=== PATIENT | male | born 1970 | race Caucasian/White ===

== ENCOUNTER 2025-05-02 09:14 | Outpatient (CLI) | payer OTHER, SELFPAY ==
--- OUTSIDE RECORDS SUMMARY | 2025-05-02 09:26 | XMS_ITS | Clinical Summary ---
Author Organization [facility] Address [address] [place] [address] Care Team Providers Care Inside Parts Sales Name Role Phone Elena Roca MD Primary Care Provider Source Comments [facility],non-owned Affiliates and Associated Physician Practices is amultiple site organization consisting of ambulatory clinics and hospital sitesin [place], [place], [place] and [place]. This disclosure is being madepursuant to the Care Everywhere program and may not contain all information available regarding this patient. Last updated 18.[facility] Allergies Active Allergy Reactions Criticality Noted Date Comments Glipizide DATABASE MODELER Dysfunction 01/14/2024 Medications * Be aware that medications may not be up to date on this document. Alwaysverify current medications with the patient. Blood Glucose Monitoring Suppl (GlucoCom Monitor) w/Device KITIndications :E 11.9 Use 1 device as directed Reasons: E 11.9 1 kit 4 Active blood glucose test stripIndicatio ns:E 11.9 Use 1 (one) strip once daily Reasons: E 11.9 100 strip 3 4 Active metFORMIN ER 24hr (Glucophage XR) 500 MG tablet Take 3 (three) tablets by mouth daily with dinner 270 tablet 3 4 Active empagliflozin (Jardiance) 10 MG tablet Take 1 (one) tablet by mouth once daily 90 tablet 1 5 Active tiZANidine (Zanaflex) 4 MG tablet Take 1 (one) tablet by mouth every 8 hours as needed for Muscle Spasms 60 tablet 5 Active allopurinol (Zyloprim) 300 MG tablet Take 1 tablet by mouth once daily 30 tablet 5 Active levothyroxine (Synthroid) 150 MCG tablet Take 1 tablet by mouth once daily 30 tablet 5 Active meloxicam (Mobic) 15 MG tablet TAKE 1 TABLET BY MOUTH ONCE DAILY NEEDED 30 tablet 5 Active atorvastatin (Lipitor) 20 MG tablet Take 1 tablet by mouth once daily 90 tablet 5 Active atorvastatin (Lipitor) 20 MG tablet Take 1 (one) tablet by mouth once daily 90 tablet 1 4 025 Discontinued Active Problems Problem Noted Date Diagnosed Date Routine general medical exam ination at a health care facility 01/14/2024 Gout of right foot 01/14/2024 Acquired hypothyroidism 01/14/2024 Type 2 diabetes mellitus wit hout complication, without long-term current use of insulin 01/14/2024 Positive hepatitis C antibody test 01/14/2024 Transaminitis 01/14/2024 Class 1 obesity due to exces s calories with serious comorbidity and body mass index (BMI) of 33.0 to 33.9 in adult 01/14/2024 Encounters Date Type Department Care Team Description 04/22/2025 Refill [facility] [address] [place] [id number] Elena Roca MD Refill Request 03/12/2025 Refill [facility] [address] [place] [address] Elena Roca MD Refill Request 02/06/2025 Refill [facility] [address] [place] [address] Elena Roca MD Refill Request from Last 3 Months Immunizations Immunization Administration Dates Next Due Covid Moderna primary monovalent 12+ yr 0.5mL ,11/27/2020 Family History Medical History Relation Name Comments None Known Brother None Known Mother None Known Sister Relation Name Status Comments Brother Alive 2 brother's Mother Alive Sister Alive Social History Tobacco Use Types Packs/Day Years Used Date Smoking Tobacco: Never Passive Smoke Exposure: Never Smokeless Tobacco: Never Tobacco Cessation:Counseling Given: No Alcohol Use Standard Drinks/Week Comments Never 0 (1 standard drink = 0.6 oz pur e alcohol) PHQ-2 Answer Date Recorded Patient Health Questionnaire-2 Score 0 12/22/2024 Sex and Gender Information Value Date Recorded Sex Assigned at Not on file 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 Gender Identity Not on file Sexual Orientation Not on file 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 file Not on file Not on f ile Last Filed Vital Signs Vital Sign Reading Time Taken Comments Blood Pressure 106/70 12/22/2024 2:33 PM CDT Pulse 89 12/22/2024 2:33 PM CDT Temperature 36.8 C (98.3 F) 12/22/2024 2:33 PM CDT Respiratory Rate - - Oxygen Saturation 98% 12/22/2024 2:33 PM CDT Inhaled Oxygen Concentration - - Weight 103.3 kg (227 lb 12.8 oz) 12/22/2024 2:33 PM CDT Height 188 cm (6' 2) 12/22/2024 2:33 PM CDT Body Mass Index 29.25 12/22/2024 2:33 PM CDT Plan of Treatment Health Maintenance Due Date Last Done Comments COLON MONITORING 1970 COLONOSCOPY - COLON CA SCREENING 1970 CT COLONOGRAPHY - COLON CA SCREENING 1970 FIT - COLON CA SCREENING 1970 FLEX SIG - COLON CA SCREENING 1970 DTAP/TDAP/TD VACCINES (1 - Tdap) 1989 HEPATITIS B VACCINE (1 of 3 - 19+ 3-dose series) 1989 PNEUMOCOCCAL VACCINE 50+ (1 of 2 - PCV) 1989 ZOSTER VACCINE (1 of 2) 2020 DIABETES RETINOPATHY SCREENING 01/14/2024 DIABETES - URINE PROTEIN SCREENING 09/22/2024 01/26/2024 DIABETES-FOOT EXAM WITH MONOFILAMENT 01/13/2025 01/14/2024 DIABETES-SERUM CREATININE 01/25/2025 01/26/2024, 09/2022 DIABETES-HGB A1C 02/01/2025 11/04/2024, , 04/19/2024, Additional history exists INFLUENZA VACCINE (#1) 2025 COVID-19 VACCINE ( season) 2025 08/29/2021, 12/25/2020, 11/27/2020 Postponed from 05/23/2024 (Patient Directed) COLOGUARD (AGES 45-75) - COLON CA SCREENING 01/17/2027 01/18/2024, 01/18/2024 Colorectal Cancer Screening 01/17/2027 HEPATITIS C SCREENING Completed 01/26/2024, 023 HIV SCREENING Completed 01/26/2024 DEPRESSION SCREENING Completed 11/04/2024, 01/14/20 24 HIB VACCINE Aged Out No longer eligi ble based on patient's age to complete this topic HPV VACCINE Aged Out No longer eligi ble based on patient's age to complete this topic MENINGOCOCCAL (Group B) VACCINE SHARED DECISION-MAKING Aged Out No longer eligible based on patient's age to complete this topic MENINGOCOCCAL GROUPS A/C/Y/W VACCINE Aged Out No longer eligible based on patient's age to complete this topic Procedures Procedure Name Priority Date/Time Associated Diagnosis Comments HEMOGLOBIN A1C - POINT OF CARE (AMB) Routine 11/04/2024 Type 2 diabetes mellitus without complication, without long-term current use of insulin HIV-1 HIV-2 ANTIBODY + HIV P24 AG PANEL Routine 01/26/2024 7:41 AM CDT Routine general medical examination at a [facility] care facility MICROALB/CREAT RATIO URINE RANDOM PANEL Routine 01/26/2024 7:38 AM CDT Type 2 diabetes mellitus without complication, without long-term current use of insulin COMPREHENSIVE METABOLIC PANEL Routine 01/26/2024 7:38 AM CDT Type 2 diabetes mellitus without complication, without long-term current use of insulin HEPATITIS C ANTIBODY W RFLX PCR Routine 01/26/2024 7:38 AM CDT Positive hepatitis C antibody test Transaminitis COLOGUARD TEST Routine 01/18/2024 4:00 AM CDT Screen for colon cancer from Last 3 Months or Most Recently Relevant to Health Maintenance Results * (ABNORMAL) HEMOGLOBIN A1C - POINT OF CARE (HgbA1C) (11/04/2024) [facility] Hemoglobin A1c POCT 8.7(H) % Expiration Date 06/29/26 Lot # [id number] QC Verified Yes Yes Blood BLOOD SPECIMEN / Unknown 11/04/2024 Elena Roca MD LAB - POINT OF CARE ORD ERABLES Final Result * HIV-1 HIV-2 ANTIBODY + HIV P24 AG PANEL (01/26/2024 7:41 AM CDT) [facility] HIV Screen 4th Generation w Reflex Non Reactive Non Reactive [facility] INSURANCE BILL Comment: HIV Negative HIV-1/HIV-2 antibodies and HIV-1 p24 antigen were NOT detected. There is no laboratory evidence of HIV infection. FASTING Blood BLOOD SPECIMEN / Unknown 01/26/2024 7:41 AM CDT 01/26/2024 Narrative Resulting Agency Comment Lab Testing performed at: [facility] [id number] Elena Roca MD LAB - CHEMISTRY ORDERAB LES Final Result Performing Organization Address City/[facility]/ZIP Co de Phone Number [facility] INSURANCE BILL [address] [place] [address] * (ABNORMAL) HEPATITIS C ANTIBODY W RFLX PCR (01/26/2024 7:38 AM CDT) [facility] Hepatitis C Antibody Reactive( A) Non Reactive [facility] ACCOUNT BILL Comment:FASTING Blood BLOOD SPECIMEN / Unknown 01/26/2024 7:38 AM CDT 01/26/2024 Narrative Resulting Agency Comment [facility]: [facility] [address] [facility] [id number] Elena Roca MD LAB - CHEMISTRY ORDERAB LES Final Result [facility] ACCOUNT BILL [address] [place] [address] * MICROALB/CREAT RATIO URINE RANDOM PANEL (01/26/2024 7:38 AM CDT) Creatinine Urine NOT AVAILABLE mg/dL [facility] ACCOUNT BILL Comment: Test not performed. Patient was unable to provide a self-collected specimen for the requested testing. The following test(s) were not performed: Result cannot be obtained for this observation. Microalbumin Urine NOT AVAILABLE [facility] ACCOUNT BILL Comment: Test not performed Result cannot be obtained for this observation. Microalbumin/Cre atinine Ratio NOT AVAILABLE [facility] ACCOUNT BILL Comment: FASTING Result cannot be obtained for this observation. Urine URINE SPECIMEN OBTAINED BY CLEAN CATCH PROCEDURE / Unknown 01/26/2024 7:38 AM CDT 01/26/2024 Narrative Resulting Agency Comment Lab Testing performed at: [facility] [address] [facility] [id number] Elena Roca MD LAB - URINE CHEMISTRY O RDERABLES Final Result [facility] ACCOUNT BILL [address] [place] [address] * (ABNORMAL) COMPREHENSIVE METABOLIC PANEL (01/26/2024 7:38 AM CDT) Glucose 141(H) 70 - 99 mg/dL [facility] ACCOUNT BILL BUN 20 6 - 24 mg/dL [facility] ACCOUNT BILL Creatinine 1.21 0.76 - 1.27 mg/dL [facility] ACCOUNT BILL eGFR by CKD-EPI 72 >59 mL/min/1.7 3 [facility] ACCOUNT BILL BUN/Creatinine Ratio 17 9 - 20 [facility] ACCOUNT BILL Sodium 138 134 - 144 mmol/L [facility] ACCOUNT BILL Potassium 5.2 3.5 - 5.2 mmol/L [facility] ACCOUNT BILL Chloride 101 96 - 106 mmol/L [facility] ACCOUNT BILL CO2 21 20 - 29 mmol/L [facility] ACCOUNT BILL Calcium 9.4 8.7 - 10.2 mg/dL [facility] ACCOUNT BILL Protein Total 7.3 6.0 - 8.5 g/dL [facility] ACCOUNT BILL Albumin 4.5 3.8 - 4.9 g/dL [facility] ACCOUNT BILL Globulin Total 2.8 1.5 - 4.5 g/dL [facility] ACCOUNT BILL Albumin/Globulin Ratio 1.6 1.2 - 2.2 [facility] ACCOUNT BILL Bilirubin Total 0.3 0.0 - 1.2 mg/dL [facility] ACCOUNT BILL Alkaline Phosphatase 70 44 - 121 IU/L [facility] ACCOUNT BILL AST 26 0 - 40 IU/L [facility] ACCOUNT BILL ALT 35 0 - 44 IU/L [facility] ACCOUNT BILL Comment:FASTING Blood BLOOD SPECIMEN / Unknown 01/26/2024 7:38 AM CDT 01/26/2024 Narrative Resulting Agency Comment Lab Testing performed at: [facility] [address] [facility] [id number] Elena Roca MD LAB - CHEMISTRY ORDERAB LES Final Result [facility] ACCOUNT BILL [address] [place] [address] * COLOGUARD TEST (01/18/2024 4:00 AM CDT) Cologuard Negative Negative [facility] Comment: NEGATIVE TEST RESULT. A negative Cologuard result indicates a low likelihood that a colorectal cancer (CRC) or advanced adenoma (adenomatous polyps with more advanced pre-malignant features) is present. The chance that a person with a negative Cologuard test has a colorectal cancer is less than 1 in 1500 (negative predictive value >99.9%) or has an advanced adenoma is less than 5.3% (negative predictive value 94.7%). These data are based on a prospective cross-sectional study of 10,000 individuals at average risk for colorectal cancer who were screened with both Cologuard and colonoscopy. (Cindy Vega al, N Engl J Med 2014;370(14):1606-5400) The normal value (reference range) for this assay is negative. COLOGUARD RE-SCREENING RECOMMENDATION: Periodic colorectal cancer screening is an important part of preventive healthcare for asymptomatic individuals at average risk for colorectal cancer. Following a negative Cologuard result, the [place] Cancer Society and U.S. Multi-Society Task Force screening guidelines recommend a Cologuard re-screening interval of 3 years. References: [place] [employer] Guideline for Colorectal Cancer Screening: https://www.cancer.org/cancer/oezzm-zsfyng-mpcgpe/cvgvxtcgu-ubnjiplow-hqtmtwu/ acs-recommendations.html.; Misael SOSA, Isacc ALVAREZ, Dulce JosephK, Colorectal Cancer Screening: Recommendations for Physicians and Patients from the U.S. Multi-Society Task Force on Colorectal Cancer Screening , Am J Gastroenterology 2017; 112:3642-5387. TEST DESCRIPTION: Composite algorithmic analysis of stool DNA-biomarkers with hemoglobin immunoassay. Quantitative values of individual biomarkers are not reportable and are not associated with individual biomarker result reference ranges. Cologuard is intended for colorectal cancer screening of adults of either sex, 45 years or older, who are at average-risk for colorectal cancer (CRC). Cologuard has been approved for use by the U.S. FDA. The performance of Cologuard was established in a cross sectional study of average-risk adults aged 50-84. Cologuard performance in patients ages 45 to 49 years was estimated by sub-group analysis of near-age groups. Colonoscopies performed for a positive result may find as the most clinically significant lesion: colorectal cancer [4.0%', advanced adenoma (including sessile serrated polyps greater than or equal to 1cm diameter) [20%' or non- advanced adenoma [31%'; or no colorectal neoplasia [45%'. These estimates are derived from a prospective cross-sectional screening study of 10,000 individuals at average risk for colorectal cancer who were screened with both Cologuard and colonoscopy. (Cindy Vega al, N Engl J Med 2014;370(14):0217-1424.) Cologuard may produce a false negative or false positive result (no colorectal cancer or precancerous polyp present at colonoscopy follow up). A negative Cologuard test result does not guarantee the absence of CRC or advanced adenoma (pre-cancer). The current Cologuard screening interval is every 3 years. ([place] Cancer Society and U.S. Multi-Society Task Force). Cologuard performance data in a 10,000 patient pivotal study using colonoscopy as the reference method can be accessed at the following location: www.[employer]/results. Additional description of the Cologuard test process, warnings and precautions can be found at www.cologuard.com. Stool STOOL SPECIMEN / Unknown 01/18/2024 4:00 AM CDT 01/21/2024 8:19 AM CDT us Elena oRca MD LAB - CHEMISTRY ORDERAB LES Final Result [facility] [address] [address] [facility] [address] [place] [address] from Last 3 Months or Most Recently Relevant to Health Maintenance Insurance [facility] Care Teams Inside Parts Sales Relationship Specialty Start Date End Date Elena Roca MD [address] [place] [id number] PCP - General Internal Medicine 12/10/23
--- OUTSIDE RECORDS SUMMARY | 2025-05-02 09:26 | XMS_ITS | Clinical Summary ---
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 90 Tablet 4 Active atorvastatin (LIPITOR) 20 MG TabletIndications:O ther hyperlipidemia Take 1 Tablet by mouth daily. 90 Tablet 4 Active levothyroxine (SYNTHROID) 150 MCG TabletIndications:O ther specified hypothyroidism Take 1 Tablet by mouth daily. 90 Tablet 4 Active Active Problems No known active problems Immunizations Immunization Administration Dates Next Due Covid-19, Mrna, Lnp-s, PF, 5 0 mcg/0.25 mL dose (Moderna) 08/29/2021 Family History Medical History Relation Name Comments No Known Problems Father No Known Problems Mother Relation Name Status Comments Father Alive Mother Alive Social History Tobacco Use Types Packs/Day Years Used Date Smoking Tobacco: Former Cigarettes Q uit: 06/11/2015 Passive Smoke Exposure: Past Smokeless Tobacco: Never Alcohol Use Standard Drinks/Week Comments Not Currently 0 (1 standard drink = 0.6 oz pure alcohol) moderately, last drank 09/15/2014 PHQ-2 Answer Date Recorded Total Score - Questions 1-9 0 11/21 Sexually Active Control Partners Comments Yes Female Sex and Gender Information Value Date Recorded Sex Assigned at Not on file 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 Gender Identity Not on file Sexual Orientation Not on file Last Filed Vital Signs Vital Sign Reading Time Taken Comments Blood Pressure 120/80 12/11/2023 10:36 AM CDT Pulse 84 12/11/2023 10:36 AM CDT Temperature 36.4 C (97.6 F) 12/11/2023 10:36 AM CDT Respiratory Rate 20 12/11/2023 10:3 6 AM CDT Oxygen Saturation 95% 12/11/2023 10: 36 AM CDT Inhaled Oxygen Concentration - - Weight 115.8 kg (255 lb 3.2 oz) 024 10:36 AM CDT Height 188 cm (6' 2) 12/11/2023 10:36 AM CDT Body Mass Index 32.77 12/11/2023 10:36 AM CDT Plan of Treatment Health Maintenance Due Date Last Done Comments TdaP Immunization 1970 Hepatitis B Immunization (1 of 3 - 19+ 3-dose series) 1989 Cologuard 2015 Colonoscopy 2015 Colorectal Cancer Screening 2015 Immunochemical Fecal Occult Blood 2015 Pneumococcal Immunization (5 0+ years) (1 of 1 - PCV) 2020 Zoster Immunization (1 of 2) 2020 SARS-COV-2 Immunization (4 - season) 2024 08/29/2021, 12/25/2020, 11/27/2020 Influenza Immunization (#1) 2025 Respiratory Syncytial Virus (RSV) Immunization (Adult) (1 - 1-dose 75+ series) 2045 Hepatitis C Virus (HCV) Screening Completed 01/26/2024, 08/13/2023, 07/23/2023 Human Papillomavirus (HPV) Immunization Aged Out No longer eligible b ased on patient's age to complete this topic Meningococcal Immunization (ACWY) Aged Out No longer eligible b ased on patient's age to complete this topic Rotavirus Immunization Aged Out No lo nger eligible based on patient's age to complete this topic Procedures Procedure Name Priority Date/Time Associated Diagnosis Comments HEPATITIS C RNA QUANT PCR VIRAL LOAD Routine 08/13/2023 9:13 AM ETL CONSULTANT Screen for STD (sexually transmitted disease) from Last 3 Months or Most Recently Relevant to Health Maintenance Results * HEPATITIS C RNA QUANT PCR VIRAL LOAD (08/13/2023 9:13 AM ETL CONSULTANT) HCV RNA QUANT PCR NON DETECTED NON DETECTED 08/14/2023 8:57 PM ETL CONSULTANT [facility] HCV RNA QT LOG10 08/14/2023 8:57 PM ETL CONSULTANT [facility] Comment: LOG 10 is not applicable. Sample held in Serology for 1 month. Call Laboratory if further testing is desired. This test was performed using JESSICA AmpliPrep JESSICA Taq Man Real Time PCR. Blood Venipuncture / Unknown 08/13/2023 9:13 AM ETL CONSULTANT 08/13/2023 9:13 AM ETL CONSULTANT us Pricila Garcia APRN, FLASH DRIER OPERATOR IMMUNOLOGY ORDERABLES Fi nal Result [facility] [address] [place] [address], from Last 3 Months or Most Recently Relevant to Health Maintenance Insurance [place] Care Teams Air Tank Assembler Relationship Specialty Start Date End Date Marti Riddle DO PCP - General Family Medicine 12/11/23
--- NOTE | 2025-05-02 11:30 | NEURO_ITS ---
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 # Mild Carpal tunnel syndrome, bilaterally ? # Normal needle/ EMG exam Nerve Conduction Studies ?Stim Site NR Peak (ms) P-T Amp (?V) Site1 Site2 Delta-P (ms) Dist (cm) Nazario (m/s) Left Median Anti Sensory (2-3nd Digit) Wrist ? 4.2 23.4 Wrist 2-3nd Digit 4.2 14.0 33 Wrist ? 4.0 15.7 Wrist 2-3nd Digit 4.2 14.0 33 Right Median Anti Sensory (2-3nd Digit) Wrist ? 4.3 20.4 Wrist 2-3nd Digit 4.3 14.0 33 Wrist ? 4.2 14.1 Wrist 2-3nd Digit 4.3 14.0 33 Left Radial Anti Sensory (Base 1st Digit) Wrist ? 2.6 12.9 Wrist Base 1st Digit 2.6 0.0 Right Radial Anti Sensory (Base 1st Digit) Wrist ? 2.8 10.1 Wrist Base 1st Digit 2.8 0.0 Left Ulnar Anti Sensory (5th Digit) Wrist ? 2.8 41.5 Wrist 5th Digit 2.8 14.0 50 Right Ulnar Anti Sensory (5th Digit) Wrist ? 2.8 21.2 Wrist 5th Digit 2.8 14.0 50 ?Stim Site NR Onset (ms) O-P Amp (mV) Site1 Site2 Delta-0 (ms) Dist (cm) Nazario (m/s) Left Median Motor (Abd Poll Brev) Wrist ? 4.8 3.6 Elbow Wrist 5.1 33.0 65 Elbow ? 9.9 3.3 Right Median Motor (Abd Poll Brev) Wrist ? 4.1 3.7 Elbow Wrist 6.4 32.0 50 Elbow ? 10.5 4.4 Left Ulnar Motor (Abd Dig Minimi) Wrist ? 3.4 5.2 A Elbow Wrist 6.6 33.0 50 A Elbow ? 10.0 4.2 B Elbow Wrist 5.2 24.0 46 B Elbow ? 8.6 4.7 Right Ulnar Motor (Abd Dig Minimi) Wrist ? 2.6 5.6 A Elbow Wrist 6.2 32.0 52 A Elbow ? 8.8 5.6 B Elbow Wrist 4.7 24.0 51 B Elbow ? 7.3 5.1 Electromyography ?Side Muscle Nerve Root Ins Act Fibs Amp Dur Recrt Comment Right 1stDorInt Ulnar C8-T1 Nml Nml Nml Nml Nml Right Ext Indicis Radial (Post Int) C7-8 Nml Nml Nml Nml Nml Right Ext Digitorum Radial (Post Int) C7-8 Nml Nml Nml Nml Nml Right BrachioRad Radial C5-6 Nml Nml Nml Nml Nml Right PronatorTeres Median C6-7 Nml Nml Nml Nml Nml Right Abd Poll Brev Median C8-T1 Nml Nml Nml Nml Nml Right ABD Dig Min Ulnar C8-T1 Nml Nml Nml Nml Nml Right FlexPolLong Median (Ant Int) C7-8 Nml Nml Nml Nml Nml Right Abd Poll Long Radial (Post Int) C7-8 Nml Nml Nml Nml Nml Left 1stDorInt Ulnar C8-T1 Nml Nml Nml Nml Nml Left Ext Indicis Radial (Post Int) C7-8 Nml Nml Nml Nml Nml Left Ext Digitorum Radial (Post Int) C7-8 Nml Nml Nml Nml Nml Left BrachioRad Radial C5-6 Nml Nml Nml Nml Nml Left PronatorTeres Median C6-7 Nml Nml Nml Nml Nml Left Abd Poll Brev Median C8-T1 Nml Nml Nml Nml Nml Left ABD Dig Min Ulnar C8-T1 Nml Nml Nml Nml Nml Left FlexPolLong Median (Ant Int) C7-8 Nml Nml Nml Nml Nml Left Abd Poll Long Radial (Post Int) C7-8 Nml Nml Nml Nml Nml
== END 2025-05-02 09:15 | disposition home or self-care (01) ==
LOC: ANHNEURO 09:19
PROVIDERS: PCP Physician Assistant; Visit Provider Physician Assistant
DX: G56.03 Carpal tunnel syndrome, bilateral upper limbs (principal)
CPT/HCPCS: 95886; 95911